=== PATIENT | female | born 1950 | race Caucasian/White ===

== ENCOUNTER → 2020-12-14 | Outpatient (CLI) | payer MEDICARE, OTHER ==
[~2020-12-14] MED LIST: ALBUTEROL0.63 MG/3 INH; ASPIRIN325 MG PO; BUSPIRONE HCL5 MG PO; CALCIUM + D SO1 EACH PO; CIPRO500 MG PO; CRESTOR10 MG PO; CYCLOBENZAPRINE5 MG PO; DOXYCYCLINE HY100 MG PO; FISH OIL 1,0001 EACH PO; JANUVIA50 MG PO; MAXZIDE 37.5 M1 EACH PO; METOPROLOL TART25 MG PO; MIRALAX PACK 171 PKT PO; NAPROXEN250 MG PO; NEURONTIN 300300 MG PO; NORCO 7.5-3251 EACH PO; PAROXETINE HCL20 MG PO; PEPCID20 MG PO; PLAVIX 75 MG TA75 MG PO; PLENDIL 5 MG TAB5 MG PO; PREDNISONE 20 M20 MG PO; PREDNISONE20 MG PO; ROBITUSSIN100 MG/5 M PO; SINGULAIR10 MG PO; SPIRIVA18 MCG INH; THEO-24400 MG PO; TRICOR145 MG PO; ZYRTEC10 MG PO
== END ==
LOC: EXRD 15:30
DX: M79.604 Pain in right leg (principal)
CPT/HCPCS: 93971

== ENCOUNTER → 2021-01-01 | Outpatient (CLI) | payer MEDICARE, OTHER | LOC: EXRD 12:55 | DX: M81.0 Age-related osteoporosis without current pathological fracture (principal) | CPT/HCPCS: 77080 ==

== ENCOUNTER → 2021-03-25 | Outpatient (CLI) | payer MEDICARE, OTHER | LOC: LAB 11:10 | DX: R06.02 Shortness of breath (principal); J43.8 Other emphysema; F17.210 Nicotine dependence, cigarettes, uncomplicated | CPT/HCPCS: 36415; 71046; 85379 ==

== ENCOUNTER → 2021-04-16 | Outpatient (CLI) | payer MEDICARE, OTHER | LOC: KOH-I 12:48 | DX: M51.16 Intervertebral disc disorders with radiculopathy, lumbar region (principal); M46.86 Other specified inflammatory spondylopathies, lumbar region; M47.26 Other spondylosis with radiculopathy, lumbar region; M47.27 Other spondylosis with radiculopathy, lumbosacral region | CPT/HCPCS: 72148 ==

== ENCOUNTER → 2021-07-08 | Outpatient (CLI) | payer MEDICARE, OTHER | LOC: HEART 5 14:21 | DX: R06.02 Shortness of breath (principal) | CPT/HCPCS: 94060; 94729 ==

== ENCOUNTER → 2021-07-23 | Outpatient (CLI) | payer MEDICARE, OTHER | LOC: KOH-I 13:00 | DX: F17.210 Nicotine dependence, cigarettes, uncomplicated (principal); R91.8 Other nonspecific abnormal finding of lung field | CPT/HCPCS: 71271 ==

== ENCOUNTER → 2021-10-14 | Outpatient (CLI) | payer MEDICARE, OTHER | LOC: KOH-I 15:25 | DX: R05.1 Acute cough (principal); R53.1 Weakness; R91.8 Other nonspecific abnormal finding of lung field | CPT/HCPCS: 71046 ==

== ENCOUNTER 2021-10-28 15:16 | Inpatient (IN) | payer MEDICARE, OTHER ==
[~2021-10-28] VITALS: Ht 172.7 cm; Wt 117.9 kg
[~2021-10-28 15:16] MED LIST changes: +ASPIRIN EC81 MG PO; -ASPIRIN325 MG PO; +HYDROCODON-ACE1 EAC4 PO; -NEURONTIN 300300 MG PO; +NEURONTIN300 MG PO; -NORCO 7.5-3251 EACH PO; -TRICOR145 MG PO; +TRICOR48 MG PO
[2021-10-28 17:07] LABS: HEMOGLOBIN 18.5 gm/dl (12.3-15.3); RED BLOOD COUNT 5.86 M/UL (4.00-5.10); WHITE BLOOD COUNT 16.1 K/UL (4.5-11.0)
[2021-10-28] MEDS ORDERED: ELIQUIS5 MG PO (19:01)
[2021-10-28] MEDS ORDERED: BUMETANIDE2 MG PO (19:07)
[2021-10-28] MEDS ORDERED: ANORO ELLIPTA1 EACH INH (19:07)
[2021-10-28] MEDS ORDERED: PROAIR HFA8.5 GM INH (19:08)
[2021-10-28] MEDS ORDERED: XYZAL5 MG PO (19:08)
[2021-10-28] MEDS ORDERED: RANEXA500 MG PO (19:08)
[2021-10-29 03:11] LABS: HEMOGLOBIN 16.9 gm/dl (12.3-15.3); RED BLOOD COUNT 5.48 M/UL (4.00-5.10); WHITE BLOOD COUNT 15.2 K/UL (4.5-11.0)
[2021-10-29] MEDS ORDERED: LOPRESSOR 50 MG50 MG PO (15:31)
[2021-10-29] MEDS ORDERED: DOXYCYCLINE HY100 MG PO (15:34)
== END 2021-10-29 15:30 | disposition home or self-care (01) | DRG 308 ==
LOC: ER1 15:16 → CDU 18:06
PROVIDERS: Emergency Medicine; Physician Assistant; ADMIT Internal Medicine
DX: I48.91 Unspecified atrial fibrillation (principal); J18.9 Pneumonia, unspecified organism; J98.11 Atelectasis; Z20.822 Contact with and (suspected) exposure to COVID-19; Z66 Do not resuscitate; I13.0 Hypertensive heart and chronic kidney disease with heart failure and stage 1 through stage 4 chronic kidney disease, or unspecified chronic kidney disease; I50.32 Chronic diastolic (congestive) heart failure; D75.1 Secondary polycythemia; R91.1 Solitary pulmonary nodule; J44.9 Chronic obstructive pulmonary disease, unspecified; E11.22 Type 2 diabetes mellitus with diabetic chronic kidney disease; G47.33 Obstructive sleep apnea (adult) (pediatric); E78.5 Hyperlipidemia, unspecified; F17.210 Nicotine dependence, cigarettes, uncomplicated; E66.01 Morbid (severe) obesity due to excess calories; N18.30 Chronic kidney disease, stage 3 unspecified; I25.10 Atherosclerotic heart disease of native coronary artery without angina pectoris; Z95.5 Presence of coronary angioplasty implant and graft; Z79.01 Long term (current) use of anticoagulants; Z79.82 Long term (current) use of aspirin; Z98.51 Tubal ligation status; Z90.49 Acquired absence of other specified parts of digestive tract; I25.2 Old myocardial infarction; Z91.040 Latex allergy status; Z80.0 Family history of malignant neoplasm of digestive organs; Z82.49 Family history of ischemic heart disease and other diseases of the circulatory system; Z80.51 Family history of malignant neoplasm of kidney; Z68.39 Body mass index [BMI] 39.0-39.9, adult
CPT/HCPCS: 71045; 80053; 82550; 82553; 82962; 83605; 83735; 83874; 83880; 84439; 84443; 84484; 85025; 87040; 93005; 93270; 94640; 94664; 94760; 99285; J0692; U0002

== ENCOUNTER 2021-11-06 17:17 | Inpatient (IN) | payer MEDICARE, OTHER ==
[~2021-11-06] VITALS: Ht 170.2 cm; Wt 115.4 kg
[~2021-11-06 17:17] MED LIST changes: +ANORO ELLIPTA1 EACH INH; +BUMETANIDE2 MG PO; +ELIQUIS5 MG PO; +LOPRESSOR 50 MG50 MG PO; +PROAIR HFA8.5 GM INH; +RANEXA500 MG PO; +XYZAL5 MG PO
[2021-11-06 17:52] LABS: HEMOGLOBIN 15.9 gm/dl (12.3-15.3); RED BLOOD COUNT 5.05 M/UL (4.00-5.10); WHITE BLOOD COUNT 8.4 K/UL (4.5-11.0)
[2021-11-07 03:11] LABS: HEMOGLOBIN 14.7 gm/dl (12.3-15.3); RED BLOOD COUNT 4.95 M/UL (4.00-5.10); WHITE BLOOD COUNT 6.4 K/UL (4.5-11.0)
[2021-11-07 04:43] LABS: BUN/CREATININE RATIO 21 (0-10)
[2021-11-08 03:27] LABS: HEMOGLOBIN 15.5 gm/dl (12.3-15.3); RED BLOOD COUNT 4.98 M/UL (4.00-5.10); WHITE BLOOD COUNT 6.2 K/UL (4.5-11.0)
[2021-11-08 21:41] LABS: HEMOGLOBIN 13.7 gm/dl (12.3-15.3); WHITE BLOOD COUNT 5.1 K/UL (4.5-11.0)
[2021-11-08 21:46] LABS: RED BLOOD COUNT 4.43 M/UL (4.00-5.10)
[2021-11-09 02:58] LABS: HEMOGLOBIN 13.7 gm/dl (12.3-15.3); RED BLOOD COUNT 4.45 M/UL (4.00-5.10); WHITE BLOOD COUNT 4.9 K/UL (4.5-11.0)
[2021-11-10 03:47] LABS: HEMOGLOBIN 13.9 gm/dl (12.3-15.3); RED BLOOD COUNT 4.55 M/UL (4.00-5.10); WHITE BLOOD COUNT 5.7 K/UL (4.5-11.0)
[2021-11-10] MEDS ORDERED: BRILINTA 90 MG90 MG PO (08:12)
--- NOTE | 2021-11-10 11:08 | NUR ---
[facility] CALLED TO [facility] R/T HOME PHARMACY BEING CLOSED.
== END 2021-11-10 12:00 | disposition home health service (06) | DRG 247 ==
LOC: ER1 17:17 → CDU 19:23 → PROG CARE 19:23
PROVIDERS: Emergency Medicine; Internal Medicine Cardiovascular Disease; ADMIT Internal Medicine
PROC: B24BZZZ Ultrasonography of Heart with Aorta (ICD-10-PCS; principal; 2021-11-07)
PROC: 027034Z Dilation of Coronary Artery, One Artery with Drug-eluting Intraluminal Device, Percutaneous Approach (ICD-10-PCS; 2021-11-08)
PROC: 4A023N7 Measurement of Cardiac Sampling and Pressure, Left Heart, Percutaneous Approach (ICD-10-PCS; 2021-11-08)
PROC: B2111ZZ Fluoroscopy of Multiple Coronary Arteries using Low Osmolar Contrast (ICD-10-PCS; 2021-11-08)
DX: I48.19 Other persistent atrial fibrillation (principal); N17.9 Acute kidney failure, unspecified; I50.32 Chronic diastolic (congestive) heart failure; E66.01 Morbid (severe) obesity due to excess calories; Z20.822 Contact with and (suspected) exposure to COVID-19; Z66 Do not resuscitate; I11.0 Hypertensive heart disease with heart failure; I25.10 Atherosclerotic heart disease of native coronary artery without angina pectoris; G47.33 Obstructive sleep apnea (adult) (pediatric); I48.92 Unspecified atrial flutter; F17.200 Nicotine dependence, unspecified, uncomplicated; E78.5 Hyperlipidemia, unspecified; J44.9 Chronic obstructive pulmonary disease, unspecified; E11.9 Type 2 diabetes mellitus without complications; Z95.1 Presence of aortocoronary bypass graft; Z90.49 Acquired absence of other specified parts of digestive tract; Z79.4 Long term (current) use of insulin; Z98.51 Tubal ligation status; Z91.040 Latex allergy status; Z82.49 Family history of ischemic heart disease and other diseases of the circulatory system; Z99.81 Dependence on supplemental oxygen; Z79.82 Long term (current) use of aspirin; Z79.899 Other long term (current) drug therapy; Z68.39 Body mass index [BMI] 39.0-39.9, adult; Z79.01 Long term (current) use of anticoagulants
CPT/HCPCS: ECHO; 36415; 71045; 71250; 78452; 80048; 80053; 81001; 82550; 82553; 82962; 83036; 83540; 83550; 83605; 83735; 83880; 84100; 84439; 84443; 84484; 85025; 85027; 85347; 85610; 85730; 86140; 87040; 87086; 93005; 93017; 93306; 94640; 94664; 94760; 96374; 96376; 97161; 99152; 99153; 99285; A9502; C1725; C1769; C1874; C1887; C1894; C9600; J0461; J1160; J1644; J2250; J2785; J3010; J3246; J3475; J7030; Q9967; U0002

== ENCOUNTER 2021-11-22 23:45 | Emergency (ER) | payer MEDICARE, OTHER ==
[~2021-11-22 23:45] MED LIST changes: +BRILINTA 90 MG90 MG PO
[2021-11-23 00:23] LABS: HEMOGLOBIN 15.4 gm/dl (12.3-15.3); RED BLOOD COUNT 5.13 M/UL (4.00-5.10); WHITE BLOOD COUNT 7.6 K/UL (4.5-11.0)
[2021-11-23 01:05] LABS: BUN/CREATININE RATIO 13 (0-10)
[2021-11-23] MEDS ORDERED: DIGOX125 MCG PO (04:18)
== END 2021-11-23 06:28 | disposition home or self-care (01) ==
LOC: ER1 23:45
PROVIDERS: Physician Assistant
DX: I48.91 Unspecified atrial fibrillation (principal); Z79.01 Long term (current) use of anticoagulants; Z20.822 Contact with and (suspected) exposure to COVID-19
CPT/HCPCS: 0240U; 71045; 80053; 81001; 82550; 82553; 83874; 83880; 84484; 85025; 87086; 93005; 99285

== ENCOUNTER → 2022-02-01 | Outpatient (CLI) | payer MEDICARE, OTHER ==
[~2022-02-01] MED LIST changes: +DIGOX125 MCG PO
[2022-02-01 09:51] LABS: RED BLOOD COUNT 4.65 M/UL (4.00-5.10); WHITE BLOOD COUNT 7.7 K/UL (4.5-11.0)
[2022-02-05 14:16] LABS: CHOLESTEROL, TOTAL 193 mg/dL (100-199); HDL SIZE 8.7 nm (>=9.2); HDL-C 37 mg/dL (>39); HDL-P (TOTAL) 22.2 umol/L (>=30.5); LARGE HDL-P 2.6 umol/L (>=4.8); LARGE VLDL-P 10.3 nmol/L (<=2.7); LDL SIZE 20.8 nm (>20.5); LDL SIZE 20.8 nm (>=20.8); LDL-C 106 mg/dL (0-99); LDL-P 1808 nmol/L (<1000); LP-IR SCORE 80 (<=45); SMALL LDL-P 1073 nmol/L (<=527); TRIGLYCERIDES 289 mg/dL (0-149); VLDL SIZE 52.7 nm (<=46.6)
== END ==
LOC: LAB 09:32
PROVIDERS: Emergency Medicine
DX: I12.9 Hypertensive chronic kidney disease with stage 1 through stage 4 chronic kidney disease, or unspecified chronic kidney disease (principal); E11.22 Type 2 diabetes mellitus with diabetic chronic kidney disease; N18.30 Chronic kidney disease, stage 3 unspecified; I25.10 Atherosclerotic heart disease of native coronary artery without angina pectoris; E78.2 Mixed hyperlipidemia; E03.9 Hypothyroidism, unspecified
CPT/HCPCS: 80053; 80061; 83704; 84443; 84550; 85025

== ENCOUNTER → 2022-04-16 | Day surgery (SDC) | payer MEDICARE, OTHER ==
[~2022-04-16] MED LIST changes: +ASPIRIN 325MG325 MG PO; +BRILINTA90 MG PO; +FAMOTIDINE20 MG PO; +METOPROLOL SUCC25 MG PO; +SPIRIVA HANDIH18 MCG INH; +VALACYCLOVIR500 MG PO
== END | disposition home or self-care (01) ==
LOC: OR 06:42
DX: R19.7 Diarrhea, unspecified (principal); E66.8 Other obesity; J44.9 Chronic obstructive pulmonary disease, unspecified; E78.5 Hyperlipidemia, unspecified; K21.9 Gastro-esophageal reflux disease without esophagitis; I48.91 Unspecified atrial fibrillation; I25.10 Atherosclerotic heart disease of native coronary artery without angina pectoris; Z86.010 Personal history of colon polyps; Z80.0 Family history of malignant neoplasm of digestive organs; Z79.82 Long term (current) use of aspirin; Z79.01 Long term (current) use of anticoagulants; Z68.37 Body mass index [BMI] 37.0-37.9, adult
CPT/HCPCS: 82962; J2704; J7040

== ENCOUNTER → 2022-04-30 | Outpatient (CLI) | payer MEDICARE, OTHER ==
[~2022-04-30] MED LIST changes: +ALLERGY RELIEF5 MG PO; +ASPIRIN81 MG PO; +BUSPIRONE HCL10 MG PO; -BUSPIRONE HCL5 MG PO; +DIGOXIN125 MCG PO; +ELIQUIS2.5 MG PO; -ELIQUIS5 MG PO; +FENOFIBRATE48 MG PO; +GABAPENTIN300 MG PO; +IPRAT-ALBUT 0.5-3 ML INH; -METOPROLOL SUCC25 MG PO; +PAROXETINE HCL30 MG PO; +PROVENTIL HFA6.7 GM INH; +SPIRIVA RESPIMAT4 GM INH; +THEOPHYLLINE400 MG PO
[2022-04-30 12:32] LABS: HEMOGLOBIN 15.2 gm/dl (12.3-15.3); RED BLOOD COUNT 4.7 M/UL (4.00-5.10); WHITE BLOOD COUNT 8.7 K/UL (4.5-11.0)
== END ==
LOC: LAB 11:48
PROVIDERS: Internal Medicine Cardiovascular Disease
DX: I48.92 Unspecified atrial flutter (principal); I10 Essential (primary) hypertension; R00.2 Palpitations
CPT/HCPCS: 36415; 71046; 80048; 85025

== ENCOUNTER 2022-05-02 09:20 | Outpatient (CLI) | payer MEDICARE, OTHER ==
[~2022-05-02] VITALS: Ht 172.7 cm; Wt 113.7 kg
[~2022-05-02 09:20] MED LIST changes: -ALLERGY RELIEF5 MG PO; -ASPIRIN81 MG PO; -DIGOXIN125 MCG PO; -FENOFIBRATE48 MG PO; -GABAPENTIN300 MG PO; -IPRAT-ALBUT 0.5-3 ML INH; -PROVENTIL HFA6.7 GM INH; -SPIRIVA RESPIMAT4 GM INH; -THEOPHYLLINE400 MG PO
[2022-05-02] MEDS ORDERED: ALLERGY RELIEF5 MG PO (10:32)
[2022-05-02] MEDS ORDERED: JANUVIA50 MG PO (10:32)
[2022-05-02] MEDS ORDERED: ANORO ELLIPTA1 EACH INH (10:35)
[2022-05-02] MEDS ORDERED: ASPIRIN81 MG PO (17:08)
[2022-05-02] MEDS ORDERED: GABAPENTIN300 MG PO (19:01)
[2022-05-02] MEDS ORDERED: FAMOTIDINE20 MG PO (19:05)
[2022-05-02] MEDS ORDERED: SPIRIVA RESPIMAT4 GM INH (19:05)
[2022-05-02] MEDS ORDERED: IPRAT-ALBUT 0.5-3 ML INH (19:06)
[2022-05-02] MEDS ORDERED: THEOPHYLLINE400 MG PO (19:06)
[2022-05-02] MEDS ORDERED: FENOFIBRATE48 MG PO (19:06)
[2022-05-02] MEDS ORDERED: PROVENTIL HFA6.7 GM INH (19:07)
[2022-05-02] MEDS ORDERED: DIGOXIN125 MCG PO (19:07)
== END 2022-05-03 09:26 | disposition home or self-care (01) ==
LOC: CATH 09:20 → PROG CARE 16:40 → CATH 05-03 09:26
DX: I48.92 Unspecified atrial flutter (principal); I25.10 Atherosclerotic heart disease of native coronary artery without angina pectoris; I10 Essential (primary) hypertension; F32.A Depression, unspecified; E78.5 Hyperlipidemia, unspecified; J44.9 Chronic obstructive pulmonary disease, unspecified; E11.9 Type 2 diabetes mellitus without complications; F17.210 Nicotine dependence, cigarettes, uncomplicated; Z95.5 Presence of coronary angioplasty implant and graft; Z91.040 Latex allergy status; Z79.01 Long term (current) use of anticoagulants; Z79.82 Long term (current) use of aspirin; Z79.84 Long term (current) use of oral hypoglycemic drugs; Z79.899 Other long term (current) drug therapy
CPT/HCPCS: 82962; 92960; 93005; 93609; 93620; 93621; 93623; 94640; 94664; 94760; 99152; 99153; C1730; C1733; C1766; J1644; J1742; J2250; J3010; J7040

== ENCOUNTER 2022-06-17 03:06 | Inpatient (IN) | payer MEDICARE, OTHER ==
[~2022-06-17] VITALS: Ht 170.2 cm; Wt 108.0 kg
[~2022-06-17 03:06] MED LIST changes: +ALLERGY RELIEF5 MG PO; +ASPIRIN81 MG PO; +DIGOXIN125 MCG PO; +FENOFIBRATE48 MG PO; +GABAPENTIN300 MG PO; +IPRAT-ALBUT 0.5-3 ML INH; +PROVENTIL HFA6.7 GM INH; +SPIRIVA RESPIMAT4 GM INH; +THEOPHYLLINE400 MG PO
[2022-06-17 04:47] LABS: HEMOGLOBIN 13.4 gm/dl (12.3-15.3); RED BLOOD COUNT 4.18 M/UL (4.00-5.10); WHITE BLOOD COUNT 9.9 K/UL (4.5-11.0)
[2022-06-17 05:22] LABS: BUN/CREATININE RATIO 16 (0-10)
[2022-06-18 15:13] LABS: BUN/CREATININE RATIO 25 (0-10)
--- NOTE | 2022-06-18 16:11 | NUR ---
REPORT CALLED TO SILVA ON PCU. PT BEING TRANSFERRED TO [address] CARDS SEES HER. BETTY IS ON THE FLOOR TO SEE PT AND DR ANGUIANO IS WELL. TM .
[2022-06-19 02:12] LABS: RED BLOOD COUNT 4.58 M/UL (4.00-5.10); WHITE BLOOD COUNT 11.9 K/UL (4.5-11.0)
[2022-06-19 02:41] LABS: HEMOGLOBIN 15.5 gm/dl (12.3-15.3)
[2022-06-20 02:07] LABS: HEMOGLOBIN 14.6 gm/dl (12.3-15.3); RED BLOOD COUNT 4.61 M/UL (4.00-5.10)
[2022-06-20 02:12] LABS: WHITE BLOOD COUNT 8.8 K/UL (4.5-11.0)
[2022-06-21 01:45] LABS: HEMOGLOBIN 14.8 gm/dl (12.3-15.3); RED BLOOD COUNT 4.66 M/UL (4.00-5.10)
[2022-06-22 03:11] LABS: HEMOGLOBIN 14.5 gm/dl (12.3-15.3); RED BLOOD COUNT 4.62 M/UL (4.00-5.10); WHITE BLOOD COUNT 9.8 K/UL (4.5-11.0)
--- NOTE | 2022-06-22 09:48 | NUR ---
PT TRANSFERRED FROM PCU TO MED SURGE 5, PT TO ROOM 5116 A THIS TIME. NAD, RESP EVEN AND UNLABORED ON 4 LPM HI FLOW NC, SKIN WARM, DRY, AND CLEAN. NO EDEMA NOTED. PT [id number]. PT ORIENTED TO ROOM AND UNIT. CALL LIGHT IN REACH, PT VOICES NO NEEDS AT THIS TIME.
--- NOTE | 2022-06-22 12:35 | NUR ---
PT TELEMTRY READING AFIBRVR AT THIS TIME. VSS. LINDSEY MADE AWARE ORDERS GIVEN AND CARRIED OUT. NAD, CALL LIGHT IN REACH.
[2022-06-23 03:22] LABS: HEMOGLOBIN 14.4 gm/dl (12.3-15.3); RED BLOOD COUNT 4.62 M/UL (4.00-5.10)
[2022-06-23 03:30] LABS: WHITE BLOOD COUNT 13.4 K/UL (4.5-11.0)
[2022-06-24 02:21] LABS: RED BLOOD COUNT 4.67 M/UL (4.00-5.10); WHITE BLOOD COUNT 12.3 K/UL (4.5-11.0)
[2022-06-24 02:46] LABS: BUN/CREATININE RATIO 38 (0-10)
[2022-06-26 02:39] LABS: RED BLOOD COUNT 5.02 M/UL (4.00-5.10)
[2022-06-26 02:40] LABS: WHITE BLOOD COUNT 15.9 K/UL (4.5-11.0)
[2022-06-26] MEDS ORDERED: METOPROLOL TART25 MG PO (12:32)
[2022-06-26] MEDS ORDERED: BENZONATATE100 MG PO (12:32)
[2022-06-26] MEDS ORDERED: MEDROL4 MG PO (12:32)
== END 2022-06-26 15:39 | disposition home or self-care (01) | DRG 177 ==
LOC: ER1 03:06 → PROG CARE 05:40 → CDU 05:40 → M/S 05:40 → PROG CARE 06-18 17:24 → M/S 06-22 09:21 → PROG CARE 06-22 16:04
PROVIDERS: Family Medicine; Internal Medicine; Internal Medicine Infectious Disease; ADMIT Internal Medicine
PROC: 8E0ZXY6 Isolation (ICD-10-PCS; principal; 2022-06-17)
PROC: XW033E5 Introduction of Remdesivir Anti-infective into Peripheral Vein, Percutaneous Approach, New Technology Group 5 (ICD-10-PCS; 2022-06-17)
PROC: 3E0333Z Introduction of Anti-inflammatory into Peripheral Vein, Percutaneous Approach (ICD-10-PCS; 2022-06-17)
PROC: 5A0945A Assistance with Respiratory Ventilation, 24-96 Consecutive Hours, High Flow/Velocity Cannula (ICD-10-PCS; 2022-06-18)
PROC: 5A0935A Assistance with Respiratory Ventilation, Less than 24 Consecutive Hours, High Flow/Velocity Cannula (ICD-10-PCS; 2022-06-22)
PROC: 5A09357 Assistance with Respiratory Ventilation, Less than 24 Consecutive Hours, Continuous Positive Airway Pressure (ICD-10-PCS; 2022-06-25)
DX: U07.1 COVID-19 (principal); I50.33 Acute on chronic diastolic (congestive) heart failure; J12.82 Pneumonia due to coronavirus disease 2019; J96.21 Acute and chronic respiratory failure with hypoxia; J96.22 Acute and chronic respiratory failure with hypercapnia; J15.9 Unspecified bacterial pneumonia; J44.0 Chronic obstructive pulmonary disease with (acute) lower respiratory infection; J44.1 Chronic obstructive pulmonary disease with (acute) exacerbation; I48.20 Chronic atrial fibrillation, unspecified; I25.10 Atherosclerotic heart disease of native coronary artery without angina pectoris; I11.0 Hypertensive heart disease with heart failure; E11.9 Type 2 diabetes mellitus without complications; G47.33 Obstructive sleep apnea (adult) (pediatric); I49.5 Sick sinus syndrome; E66.01 Morbid (severe) obesity due to excess calories; E78.5 Hyperlipidemia, unspecified; Z98.51 Tubal ligation status; Z82.49 Family history of ischemic heart disease and other diseases of the circulatory system; Z95.5 Presence of coronary angioplasty implant and graft; Z90.49 Acquired absence of other specified parts of digestive tract; Z91.040 Latex allergy status; Z79.01 Long term (current) use of anticoagulants; Z87.891 Personal history of nicotine dependence; Z98.890 Other specified postprocedural states; Z99.81 Dependence on supplemental oxygen; Z79.4 Long term (current) use of insulin; Z79.899 Other long term (current) drug therapy; Z79.82 Long term (current) use of aspirin; Z68.37 Body mass index [BMI] 37.0-37.9, adult
CPT/HCPCS: 36415; 36600; 71045; 80048; 80053; 82140; 82550; 82553; 82803; 82962; 83605; 83735; 83880; 84100; 84132; 84484; 85025; 85027; 85610; 85652; 86140; 93005; 94640; 94660; 94664; 94760; 96374; 96375; 97116; 97116-GP-CQ; 97161; 97165; 97530; 97530-GP-CQ; 97535; 99285; J0248; J1100; J1160; J1205; J2543; J2930; J7030; Q0177; U0002